=== PATIENT | male | born 1950 ===

== ENCOUNTER 2017-03-24 14:28 | Emergency (ER) | payer BC, MEDICARE ==
[2017-03-24 14:35] VITALS: BMI 27.6
[2017-03-24 14:38] VITALS: RESP 18; TEMP 98
--- NOTE | 2017-03-24 14:56 | ED PDOC ---
Arrival/HPI - General Chief Complaint: GI Problem Time Seen by Provider: 03/24/17 14:39 Historian: Patient - History of Present Illness Narrative History of Present Illness (Text): 03/24/17 14:46 A 66 year old male, whose past medical history includes hemorrhoids, hyperlipidemia, gastritis, and colon CA (surgically removed), presents to the emergency department for 3 day of bloody stools. 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 His 4th and 5th bowel movement did not have blood and was regular, then this morning when he has his most recent bowel movement he began to see the blood again. The patient notes the stool itself is not bloody and is at is baseline. The patient denies any abdominal pain, fever, nausea, vomiting, appetite changes, or any other complaints at this time. Time/Duration: < week (x 3 days ) Symptom Onset: Sudden Symptom Course: Intermittent Severity Level: Mild Activities at Onset: Light Context: Home Past Medical History - Provider Review Nursing Documentation Reviewed: Yes - Infectious Disease Hx of Infectious Diseases: None - Cardiac Hx Hypertension: Yes - Endocrine/Metabolic Hx Hypothyroidism: Yes - Hematological/Oncological Hx Cancer: Yes (colon CA) - Gastrointestinal Other/Comment: colon CA - Psychiatric Hx Substance Use: No - Surgical History Other/Comment: Colon resection - Anesthesia Hx Anesthesia: Yes Hx Anesthesia Reactions: No Hx Malignant Hyperthermia: No Family/Social History - Physician Review Nursing Documentation Reviewed: Yes Family/Social History: No Known Family HX Smoking Status: Never Smoked Hx Alcohol Use: Yes Frequency of alcohol use: Socially Hx Substance Use: No Allergies/Home Meds Allergies/Adverse Reactions: Allergies Penicillins Allergy (Verified 03/24/17 14:35) ANAPHYLAXIS Home Medications: Home Meds Medication Instructions Recorded Confirmed Levothyroxine [Synthroid] 100 mcg PO DAILY 03/24/17 03/24/17 Review of Systems - Physician Review All systems were reviewed & negative as marked: Yes - Review of Systems Constitutional: absent: Fevers Gastrointestinal: Stool Changes, Other (bloody stool ). absent: Abdominal Pain , Nausea, Vomiting, Appetite Changes Physical Exam Vital Signs Reviewed: Yes Vital Signs Temp Pulse Resp BP Pulse Ox 03/24/17 14:38 98.0 F 89 18 132/69 95 Temperature: Afebrile Blood Pressure: Normal Pulse: Regular Respiratory Rate: Normal Appearance: Positive for: Well-Appearing, Non-Toxic, Comfortable Pain Distress: None Mental Status: Positive for: Alert and Oriented X 3 - Systems Exam Head: Present: Atraumatic, Normocephalic Pupils: Present: PERRL Extroacular Muscles: Present: EOMI Conjunctiva: Present: Normal Mouth: Present: Moist Mucous Membranes, Normal Tounge Pharnyx: No: ERYTHEMA, EXUDATE Neck: Present: Normal Range of Motion Respiratory/Chest: Present: Clear to Auscultation, Good Air Exchange. No: Respiratory Distress, Accessory Muscle Use Cardiovascular: Present: Regular Rate and Rhythm, Normal S1, S2. No: Murmurs Abdomen: Present: Normal Bowel Sounds. No: Tenderness, Distention, Peritoneal Signs Back: Present: Normal Inspection Upper Extremity: Present: Normal Inspection. No: Cyanosis, Edema Lower Extremity: Present: Normal Inspection. No: Edema Neurological: Present: GCS=15, CN II-XII Intact, Speech Normal Skin: Present: Warm, Dry, Normal Color. No: Rashes Psychiatric: Present: Alert, Oriented x 3, Normal Insight, Normal Concentration Medical Decision Making ED Course and Treatment: 03/24/17 15:11 Impression: A 66 year old male with rectal bleeding. Differential Diagnosis included but are not limited to: Plan: -- Labs -- Rectal Exam Progress Notes: Rectal exam was performed by me. The findings show an empty rectum with no stool , unable to test. - Lab Interpretations Lab Results: 03/24/17 14:50 03/24/17 14:50 Lab Results 03/24/17 14:50: Sodium 140, Potassium 3.7, Chloride 103, Carbon Dioxide 28, Anion Gap 13, BUN 16, Creatinine 1.2, Est GFR ( Amer) > 60, Est GFR (Non- Af Amer) > 60, Random Glucose 105, Calcium 9.1, Total Bilirubin 0.2, AST 32, ALT 33, Alkaline Phosphatase 51, Total Protein 7.0, Albumin 4.0, Globulin 3.1, Albumin/Globulin Ratio 1.3 03/24/17 14:50: PT 11.2, INR 1.03 03/24/17 14:50: WBC 8.7, RBC 3.36 L, Hgb 10.7 L, Hct 31.7 L, MCV 94.3, MCH 31.8 , MCHC 33.8, RDW 13.2, Plt Count 234, MPV 9.9, Gran % 68.2 H, Lymph % (Auto) 23.5, [place] % (Auto) 7.4 H, Eos % (Auto) 0.8 L, Baso % (Auto) 0.1, Gran # 5.90, Lymph # 2.0, [place] # 0.6, Eos # 0.1, Baso # 0.01 03/24/17 14:45: Blood Type Pending, Antibody Screen Pending, BBK History Checked No verified bt I have reviewed the lab results: Yes (mild anemia) - Scribe Statement The provider has reviewed the documentation as recorded by the Gilson Dugan Provider Scribe Attestation: All medical record entries made by the Scribe were at my direction and personally dictated by me. I have reviewed the chart and agree that the record accurately reflects my personal performance of the history, physical exam, medical decision making, and the department course for this patient. I have also personally directed, reviewed, and agree with the discharge instructions and disposition. Disposition/Present on Arrival - Present on Arrival Any Indicators Present on Arrival: No History of DVT/PE: No History of Uncontrolled Diabetes: No Urinary Catheter: No History of Decub. Ulcer: No History Surgical Site Infection Following: None - Disposition Have Diagnosis and Disposition been Completed?: Yes Diagnosis: Lower gastrointestinal bleeding Disposition Time: 15:45 Patient Plan: Discharge Patient Problems: Current Active Problems Problem Status Onset Lower gastrointestinal bleeding Acute Condition: STABLE Discharge Instructions (ExitCare): Gastrointestinal Bleeding (ED) Additional Instructions: Schedule evaluation and colonoscopy with your doctor this coming week. Return to ER for persistent bleeding or lightheadedness, fainting. Forms: Causes (Romanian)
[2017-03-24 15:15] LABS: BASO # 0.01 K/mm3 (0.0-2.0); BASO % 0.1 % (0.0-3.0); EOS # 0.1 (0.0-0.7); EOS % 0.8 % (1.5-5.0); GRAN # 5.9 (1.4-6.5); GRAN % 68.2 % (50.0-68.0); HEMATOCRIT 31.7 % (42.0-52.0); LYMPH % 23.5 % (22.0-35.0); MEAN CELL VOLUME 94.3 fl (80.0-105.0); MEAN CORPUSCULAR HEMOGLOBIN 31.8 pg (25.0-35.0); MEAN CORPUSCULAR HGB CONC 33.8 g/dl (31.0-37.0); MEAN PLATELET VOLUME 9.9 fl (7.0-11.0); MONO # 0.6 (0.1-0.6); MONO % 7.4 % (1.0-6.0); RED CELL DISTRIBUTION WIDTH 13.2 % (11.5-14.5); WHITE BLOOD COUNT 8.7 10^3/ul (4.5-11.0)
[2017-03-24 15:18] LABS: ALB/GLOB RATIO 1.3 (1.1-1.8); ALKALINE PHOSPHATASE 51 U/L (38-126); ALT/SGPT 33 U/L (7-56); AST/SGOT 32 U/L (17-59); BILIRUBIN,TOTAL 0.2 mg/dL (0.2-1.3); BLOOD UREA NITROGEN 16 mg/dL (7-21); CALCIUM 9.1 mg/dL (8.4-10.5); CARBON DIOXIDE 28 mmol/L (21-33); CHLORIDE 103 mmol/L (98-107); GFR AFRICAN-AMERICAN > 60; GLUCOSE,RANDOM 105 mg/dL (70-110); POTASSIUM 3.7 mmol/L (3.6-5.0); SODIUM 140 mmol/L (132-148)
[2017-03-24 15:26] LABS: INR 1.03 (0.93-1.08)
[2017-03-24 15:55] VITALS: BP 132/78; PULSE 88; O2SAT 98
== END 2017-03-24 15:56 | disposition home or self-care (01) ==
LOC: ED 14:28 → MERGE 14:28 → ED 15:56
DX: K92.2 Gastrointestinal hemorrhage, unspecified (principal); I10 Essential (primary) hypertension; E78.5 Hyperlipidemia, unspecified; E03.9 Hypothyroidism, unspecified; Z88.0 Allergy status to penicillin